=== PATIENT | female | born 1945 | race Caucasian/White ===

== ENCOUNTER → 2023-11-19 12:46 | Outpatient (REF) | payer MEDICARE, SELFPAY | LOC: RAD 12:46 | PROVIDERS: ATTENDING PHYSICIAN Internal Medicine Cardiovascular Disease; FAMILY PHYSICIAN Family Medicine | DX: I73.9 Peripheral vascular disease, unspecified (principal) | CPT/HCPCS: 93922; 93925 ==

== ENCOUNTER → 2024-05-12 10:18 | Outpatient (REF) | payer MEDICARE, SELFPAY | LOC: RCS 10:18 | PROVIDERS: ATTENDING PHYSICIAN Internal Medicine Cardiovascular Disease; FAMILY PHYSICIAN Family Medicine | DX: I25.5 Ischemic cardiomyopathy (principal) | CPT/HCPCS: 93306 ==

== ENCOUNTER 2025-08-20 13:13 | Emergency (ER) | payer MEDICARE, SELFPAY ==
[2025-08-20 13:24] VITALS: BP 149/57
--- NOTE | 2025-08-20 14:10 | ED.GENMED ---
History of Present Illness
General
Chief Complaint: Fall
Source: patient
Exam Limitations: none
Time Seen by Provider: 08/20/25 13:49
History of Present Illness
History of Present Illness:
Patient tripped and fell on a speed bump. Landing on her face. Complaining of facial pain mild head injury no LOC no syncope. Moderate left shoulder pain. Mild right knee pain. Was able to stand up and bear weight. Last tetanus is unknown.
Patient is on anticoagulation. Denies chest pain shortness of breath abdominal pain or other complaint
Past History
Past History
ED Past Medical History: CAD, NIDDM and Other (Unknown)
ED Past Surgical History: Other (Unknown)
Social History
Tobacco: Other (Unknown)
Alcohol: Other (Unknown)
Drug: Other (Unknown)
Review of Systems
Review of Systems
All Other Systems: Not applicable
Constitutional: Denies fever
Respiratory: Reports no symptoms
Cardiac: Reports no symptoms
ABD/GI: Reports no symptoms
Phy Exam
Physical Exam
Physical Exam:
TRAUMA EXAM:
VITAL SIGNS: Vital signs reviewed, cooperative
DISTRESS: No active disease
EYES: Pupils reactive, no orbital trauma
NOSE: No deformity or epistaxis
FACE AND SCALP: No scalp trauma, external canals no blood. Hematoma centrally to the chin. No TMJ tenderness. Teeth normal. Intraoral normal. Mild abrasion and swelling to the nasal bridge. Small amount of dried blood at the right nares.
Small hematoma to the right forehead
NECK: Supple nontender
BACK: Back nontender, pelvis stable to compression
RESPIRATORY: No distress, breath sounds normal, no tender chest wall
CARDIAC: No murmur, pulses equal and strong
ABDOMEN: Soft nontender bowel sounds normal
SKIN: Abrasion to the right knee. Warm and dry. Perfusing well.
EXTREMITIES: Tenderness over the right patella. Able to straight leg raise. Knee stable. All other lower extremity issues are negative. Hips are stable. Able to straight leg raise. Pelvis stable. Ankle and feet normal. Right upper extremity
within normal limits. Tenderness and swelling of the left upper extremity towards the shoulder. No clavicle tenderness. No obvious deformity. Good distal pulses and color. Distal humerus elbow forearm and wrist all within normal limits.
NEUROLOGICAL: Alert, oriented, no motor deficits
PSYCH: Mood affect normal
Course
Orders/Labs/Results
Orders:
Orders
08/20/25 13:58
CT Cervical Spine W/o Iv Contr Urgent
Comment:
Reason For Exam: Fall/anticoagulated facial/head trauma
CT Facial Bones W/o Iv Contras Urgent
Comment:
Reason For Exam: Fall/anticoagulated facial/head trauma
CT Head W/o Iv Contrast Urgent
Comment:
Reason For Exam: Fall anticoagulated facial/head trauma
Bedside Glucose- Treatment ONCE
Cardiac Monitoring- Treatment ONCE
Tetanus/Diphth/Acelpertussis [Adacel] 0.5 ml IM .ONCE ONE
CXR2 [CR Chest - 2 Views ] Urgent
Comment:
Reason For Exam: Left upper chest trauma
Knee, Right 4 or More Views [CR Knee- Right 4 Or More View*] Urgent
Comment:
Reason For Exam: Right patellar trauma
Shoulder, Left 2 View CR [CR Shoulder - Left Min 2 View*] Urgent
Comment:
Reason For Exam: Fall/left shoulder trauma
08/20/25 14:23
Acetaminophen [Tylenol] 1,000 mg .ROUTE .STK-MED ONE
08/20/25 14:29
Acetaminophen [Tylenol] 650 mg PO NOW STA
08/20/25 14:30
Acetaminophen [Tylenol] 650 mg .ROUTE .STK-MED ONE
08/20/25 16:42
IV Insert/Care/Rem.- Treatment PRN
08/20/25 16:45
Sling Left-Treatment ONCE
08/20/25 17:22
Basic Metabolic Panel Urgent
Complete Blood Count/With Diff Urgent
PTT Urgent
Prothrombin Time Urgent
08/20/25 19:31
Acetaminophen [Tylenol] 650 mg .ROUTE .STK-MED ONE
08/20/25 19:32
Acetaminophen [Tylenol] 650 mg PO NOW STA
Abnormal Lab Results
08/20/25 08/20/25 08/20/25
14:45 17:22 18:57
RBC 3.99 L 10^6/uL
(4.20-5.40)
Hgb 11.7 L g/dL
(12.0-16.0)
Hct 35.4 L %
(37.0-47.0)
MPV 11.0 H fL
(7.4-10.4)
Absolute Neuts (auto) 8.5 H 10^3/uL
(1.4-6.5)
Absolute Lymphs (auto) 0.5 L 10^3/uL
(1.2-3.4)
Neutrophils % 89.6 H %
(42.2-75.2)
Lymphocytes % 4.8 L %
(20.5-51.1)
PT 17.7 H Sec
(11.4-14.6)
BUN 35 H mg/dl
(7-17)
Glucose 196 H mg/dl
(70-99)
POC Glucose 178 H mg/dl 172 H mg/dl
(70-99) (70-99)
08/20/25 17:22
08/20/25 17:22
Vital Signs
Initial and Last Documented VS:
Initial Vital Signs
Temp Pulse Resp BP Pulse Ox
98.0 F 79 16 149/57 98
08/20/25 13:24 08/20/25 13:24 08/20/25 13:24 08/20/25 13:24 08/20/25 13:24
Last Documented Vital Signs
Temp Pulse Resp BP Pulse Ox
98.0 F 81 14 159/66 98
08/20/25 13:24 08/20/25 19:15 08/20/25 19:15 08/20/25 19:00 08/20/25 19:15
MDM/Problems Addressed
Differential Diagnosis Includes:
Trip and fall. No syncope. Issues going to include any trauma to the face head or neck. Patient is anticoagulated. CTs pending. Orthopedically most tenderness swelling and pain to the left proximal humerus. Relatively suspicious of a fracture.
X-rays pending. Low suspicion for right knee. Able to straight leg raise. We will get an x-ray. Her abdomen chest and pelvis and neurologically all within normal limits. Patient will receive a tetanus shot and wound care
*Pulse Oximetry
SaO2: 98
Oxygen Mode of Delivery: Room air
Patient hypoxic: no
*Critical Care Note
Total Time (30-74mins, 75-104mins- exclusive of procedures): 40
Data Reviewed
Review of Other/Old Records Reveals: Labs, Records and Testing
Update Note
Update Note:
Discussed with Perico anton. Because patient is on clopidogrel plus Eliquis they felt she warranted transfer for neurosurgical monitoring. Patient updated. She is okay with this.
Patient remained stable prior to transfer
ED Attending Note
-
Portions of this chart may have been created with voice recognition software.� Occasional wrong word or��sound alike� substitutions may have occurred due to the inherent limitations of voice recognition software.
Discharge Plan
Departure
Patient Disposition: Acute Care Hospital
Date of Disposition: 08/20/25
Time of Disposition: 16:43
Discharge Problem:
Subdural hematoma, Anticoagulated/antiplatelet, Left proximal humerus fracture, MULTIPLE FACIAL CONCUSSIONS, Right knee contusion
Prescriptions:
No Action
furosemide 40 MG tablet
40 mg PO DAILY 0RF
carvedilol 12.5 MG tablet
12.5 mg PO BID 0RF
clopidogrel 75 MG tablet
75 mg PO DAILY 0RF
pantoprazole 40 MG tablet,delayed release (DR/EC)
40 mg PO DAILY 0RF
lisinopril 2.5 MG tablet
2.5 mg PO DAILY 0RF
Eliquis 5 MG tablet
5 mg PO BID 0RF
metformin 1,000 mg Tablet
1,000 mg PO BID
potassium chloride 20 mEq Tablet Extended Release
20 meq PO DAILY
Jardiance 10 mg Tablet
10 mg PO DAILY
atorvastatin 40 MG tablet
80 mg PO QPM
insulin glargine [Lantus U-100 Insulin] 1,000 UNITS/10 ML solution
20 units SC HS
aspirin [aspirin] 81 mg tablet,chewable
81 mg PO DAILY Qty: 1 0RF
Rx Instructions:
Take for 1 week then stop
Referrals:
Yuko Marshall MD [Family Provider, Family Practice]
Hospital Transfer
Other hospital: [facility]
I certify that the patient requires transfer: Yes
Discussed case with accepting physician: trauma
Reason for transfer: higher level of care
Interventions
Interventions:
*Risk Screen - Suicide Last Done: 08/20/25 13:24
*General Assessment Last Done: 08/20/25 13:24
*Neglect/Abuse Screening Last Done: 08/20/25 13:24
*Nursing Disposition Last Done: 08/20/25 19:35
ED-Musculoskeletal Assessment Last Done: 08/20/25 14:38
ED- Neurological Assessment Last Done: 08/20/25 14:38
ED-Skin Assessment Last Done: 08/20/25 14:38
Discharge Date and Time
Discharge Date/Time: 08/20/25 19:35
Print Language: SAMMARINESE
[2025-08-20] MEDS: ADACEL 0.5 ML IM (14:31)
[2025-08-20] MEDS: TYLENOL 650 MG PO ×2 (14:32→19:32)
[2025-08-20 14:47] LABS: Glucose - Point of Care 178 mg/dl (70-99)
[2025-08-20 16:27] VITALS: BP 157/66
[2025-08-20 17:16] VITALS: BMI 31.4
[2025-08-20 17:21] VITALS: BP 168/67
[2025-08-20 17:32] LABS: Hematocrit 35.4 % (37.0-47.0); Hemoglobin 11.7 g/dL (12.0-16.0); Mean Corp Hgb Conc. 33.1 g/dL (33.0-37.0); Mean Corpuscular Volume 88.7 fL (81.0-99.0); Nucleated Red Blood Cells % 0 %; Platelet Count 200 10^3/uL (130-400); Red Cell Dist. Width 14.2 % (11.5-14.5)
[2025-08-20 17:40] LABS: INR 1.43; PT 17.7 Sec (11.4-14.6)
[2025-08-20 17:41] LABS: APTT 33.2 Sec (23.4-35.0)
[2025-08-20 17:47] LABS: Blood Urea Nitrogen 35 mg/dl (7-17); Calcium 10.0 mg/dl (8.4-10.2); Carbon Dioxide 29 mmol/L (22-30); Chloride 101 mmol/L (98-107); Estimated Creatinine Clearance 48 ml/min; Glucose 196 mg/dl (70-99); Potassium 4.4 mmol/L (3.5-5.1); Sodium 137 mmol/L (135-145); eGFR 57.66
[2025-08-20 18:04] VITALS: BP 152/73
[2025-08-20 18:48] VITALS: BP 149/72
[2025-08-20 18:58] LABS: Glucose - Point of Care 172 mg/dl (70-99)
[2025-08-20 19:00] VITALS: BP 159/66
== END 2025-08-20 19:35 | disposition short-term general hospital (02) ==
LOC: EMR 13:13
PROVIDERS: EMERGENCY PHYSICIAN Emergency Medicine; FAMILY PHYSICIAN Family Medicine
DX: S06.5X0A Traumatic subdural hemorrhage without loss of consciousness, initial encounter (principal); S42.202A Unspecified fracture of upper end of left humerus, initial encounter for closed fracture; S80.01XA Contusion of right knee, initial encounter; W01.10XA Fall on same level from slipping, tripping and stumbling with subsequent striking against unspecified object, initial encounter; I25.10 Atherosclerotic heart disease of native coronary artery without angina pectoris; Z79.01 Long term (current) use of anticoagulants; Z23 Encounter for immunization
CPT/HCPCS: 99291; 90471; 70450; 70486; 71046; 72125; 73030; 73564; 80048; 82962; 85025; 85610; 85730; 90715

== ENCOUNTER → 2025-08-27 10:01 | Outpatient (REF) | payer OTHER, MEDICARE, SELFPAY ==
[2025-08-27 12:37] LABS: Hematocrit 25.4 % (37.0-47.0); Hemoglobin 7.7 g/dL (12.0-16.0); Mean Corp Hgb Conc. 30.3 g/dL (33.0-37.0); Mean Corpuscular Volume 94.8 fL (81.0-99.0); Nucleated Red Blood Cells % 0 %; Platelet Count 150 10^3/uL (130-400); Red Cell Dist. Width 14.9 % (11.5-14.5)
[2025-08-27 12:52] LABS: Blood Urea Nitrogen 32 mg/dl (7-17); Calcium 8.8 mg/dl (8.4-10.2); Carbon Dioxide 25 mmol/L (22-30); Chloride 103 mmol/L (98-107); Glucose 117 mg/dl (70-99); Potassium 4.1 mmol/L (3.5-5.1); Sodium 129 mmol/L (135-145); eGFR > 60.00
== END ==
LOC: OLABP 10:01
PROVIDERS: ATTENDING PHYSICIAN Family Medicine
DX: S42.202A Unspecified fracture of upper end of left humerus, initial encounter for closed fracture (principal); I21.9 Acute myocardial infarction, unspecified; S06.5X0A Traumatic subdural hemorrhage without loss of consciousness, initial encounter; I10 Essential (primary) hypertension; E78.5 Hyperlipidemia, unspecified; E78.00 Pure hypercholesterolemia, unspecified; E11.9 Type 2 diabetes mellitus without complications
CPT/HCPCS: 36415; 80048; 85025

== ENCOUNTER → 2025-08-28 11:06 | Outpatient (REF) | payer OTHER, MEDICARE, SELFPAY ==
[2025-08-28 13:07] LABS: Hematocrit 23.4 % (37.0-47.0); Hemoglobin 7.2 g/dL (12.0-16.0); Mean Corp Hgb Conc. 30.8 g/dL (33.0-37.0); Mean Corpuscular Volume 93.2 fL (81.0-99.0); Nucleated Red Blood Cells % 0 %; Platelet Count 174 10^3/uL (130-400); Red Cell Dist. Width 14.7 % (11.5-14.5)
== END ==
LOC: OLABP 11:06
PROVIDERS: ATTENDING PHYSICIAN Family Medicine
DX: S42.202A Unspecified fracture of upper end of left humerus, initial encounter for closed fracture (principal); I21.9 Acute myocardial infarction, unspecified; I10 Essential (primary) hypertension; E78.5 Hyperlipidemia, unspecified; E78.00 Pure hypercholesterolemia, unspecified; E11.9 Type 2 diabetes mellitus without complications
CPT/HCPCS: 85025

== ENCOUNTER → 2025-08-29 11:37 | Outpatient (REF) | payer OTHER, MEDICARE, SELFPAY ==
[2025-08-29 12:53] LABS: Blood Urea Nitrogen 27 mg/dl (7-17); Calcium 9.1 mg/dl (8.4-10.2); Carbon Dioxide 23 mmol/L (22-30); Chloride 107 mmol/L (98-107); Glucose 91 mg/dl (70-99); Potassium 5.2 mmol/L (3.5-5.1); Sodium 131 mmol/L (135-145); eGFR > 60.00
== END ==
LOC: OLABP 11:37
PROVIDERS: ATTENDING PHYSICIAN Family Medicine
DX: E78.00 Pure hypercholesterolemia, unspecified (principal); E11.9 Type 2 diabetes mellitus without complications; I10 Essential (primary) hypertension; S42.202A Unspecified fracture of upper end of left humerus, initial encounter for closed fracture; I21.9 Acute myocardial infarction, unspecified
CPT/HCPCS: 36415; 80048

== ENCOUNTER → 2025-08-31 10:28 | Outpatient (REF) | payer OTHER, MEDICARE, SELFPAY ==
[2025-08-31 11:47] LABS: Blood Urea Nitrogen 26 mg/dl (7-17); Calcium 9.0 mg/dl (8.4-10.2); Carbon Dioxide 26 mmol/L (22-30); Chloride 109 mmol/L (98-107); Glucose 108 mg/dl (70-99); Potassium 4.9 mmol/L (3.5-5.1); Sodium 135 mmol/L (135-145); eGFR 57.66
== END ==
LOC: OLABP 10:28
PROVIDERS: ATTENDING PHYSICIAN Family Medicine
DX: S42.202A Unspecified fracture of upper end of left humerus, initial encounter for closed fracture (principal); I21.9 Acute myocardial infarction, unspecified; S06.5X0A Traumatic subdural hemorrhage without loss of consciousness, initial encounter; I10 Essential (primary) hypertension; E78.5 Hyperlipidemia, unspecified; E78.00 Pure hypercholesterolemia, unspecified; E11.9 Type 2 diabetes mellitus without complications
CPT/HCPCS: 36415; 80048

== ENCOUNTER → 2025-09-04 13:26 | Outpatient (REF) | payer OTHER, MEDICARE, SELFPAY ==
[2025-09-04 14:34] LABS: Blood Urea Nitrogen 23 mg/dl (7-17); Calcium 9.4 mg/dl (8.4-10.2); Carbon Dioxide 26 mmol/L (22-30); Chloride 107 mmol/L (98-107); Glucose 111 mg/dl (70-99); Potassium 4.1 mmol/L (3.5-5.1); Sodium 136 mmol/L (135-145); eGFR > 60.00
== END ==
LOC: OLABP 13:26
PROVIDERS: ATTENDING PHYSICIAN Family Medicine
DX: I10 Essential (primary) hypertension (principal); E78.00 Pure hypercholesterolemia, unspecified; E11.9 Type 2 diabetes mellitus without complications; E78.5 Hyperlipidemia, unspecified
CPT/HCPCS: 36415; 80048

== ENCOUNTER → 2025-09-07 12:18 | Outpatient (REF) | payer OTHER, MEDICARE, SELFPAY ==
[2025-09-07 13:25] LABS: Blood Urea Nitrogen 28 mg/dl (7-17); Calcium 9.5 mg/dl (8.4-10.2); Carbon Dioxide 26 mmol/L (22-30); Chloride 105 mmol/L (98-107); Glucose 116 mg/dl (70-99); Potassium 4.3 mmol/L (3.5-5.1); Sodium 136 mmol/L (135-145); eGFR > 60.00
== END ==
LOC: OLABP 12:18
PROVIDERS: ATTENDING PHYSICIAN Family Medicine
DX: E11.9 Type 2 diabetes mellitus without complications (principal); I21.9 Acute myocardial infarction, unspecified; I10 Essential (primary) hypertension; E78.5 Hyperlipidemia, unspecified; E78.00 Pure hypercholesterolemia, unspecified; S42.202A Unspecified fracture of upper end of left humerus, initial encounter for closed fracture; S06.5X0A Traumatic subdural hemorrhage without loss of consciousness, initial encounter
CPT/HCPCS: 36415; 80048

== ENCOUNTER → 2025-09-13 11:05 | Outpatient (REF) | payer OTHER, MEDICARE, SELFPAY ==
[2025-09-13 12:02] LABS: Blood Urea Nitrogen 46 mg/dl (7-17); Calcium 9.7 mg/dl (8.4-10.2); Carbon Dioxide 22 mmol/L (22-30); Chloride 106 mmol/L (98-107); Glucose 118 mg/dl (70-99); Potassium 4.1 mmol/L (3.5-5.1); Sodium 137 mmol/L (135-145); eGFR 51.11
== END ==
LOC: OLABP 11:05
PROVIDERS: ATTENDING PHYSICIAN Family Medicine
DX: S42.202A Unspecified fracture of upper end of left humerus, initial encounter for closed fracture (principal); I21.9 Acute myocardial infarction, unspecified; S06.5X0A Traumatic subdural hemorrhage without loss of consciousness, initial encounter; I10 Essential (primary) hypertension; E78.5 Hyperlipidemia, unspecified; E78.00 Pure hypercholesterolemia, unspecified; E11.9 Type 2 diabetes mellitus without complications
CPT/HCPCS: 36415; 80048

== ENCOUNTER → 2025-09-17 10:17 | Outpatient (REF) | payer OTHER, MEDICARE, SELFPAY ==
[2025-09-17 12:08] LABS: Blood Urea Nitrogen 41 mg/dl (7-17); Calcium 9.7 mg/dl (8.4-10.2); Carbon Dioxide 26 mmol/L (22-30); Chloride 105 mmol/L (98-107); Glucose 125 mg/dl (70-99); Potassium 4.2 mmol/L (3.5-5.1); Sodium 135 mmol/L (135-145); eGFR 57.31
== END ==
LOC: OLABP 10:17
PROVIDERS: ATTENDING PHYSICIAN Family Medicine
DX: S42.202A Unspecified fracture of upper end of left humerus, initial encounter for closed fracture (principal); I21.9 Acute myocardial infarction, unspecified; S06.5X0A Traumatic subdural hemorrhage without loss of consciousness, initial encounter; I10 Essential (primary) hypertension; E78.5 Hyperlipidemia, unspecified; E78.00 Pure hypercholesterolemia, unspecified; E11.9 Type 2 diabetes mellitus without complications
CPT/HCPCS: 36415; 80048